=== PATIENT | female | born 1960 | race Caucasian/White ===

== ENCOUNTER → 2023-06-05 13:42 | Outpatient (REF) | payer BC, SELFPAY ==
[2023-06-05 14:19] LABS: % Basophils 0.5 % (0-2); % Eosinophils 1.1 % (0-6); % Immature Granulocytes 0.5 % (0-0.5); % Lymphocytes 17.7 % (20.5-51.1); % Monocytes 6.4 % (1.7-9.3); % Neutrophils 73.8 % (42.2-75.2); Absolute Eosinophils 0.1 10^3/uL (0-0.7); Absolute Lymphocytes 1.4 10^3/uL (1.2-3.4); Absolute Monocytes 0.5 10^3/uL (0.1-0.6); Absolute Neutrophils 5.6 10^3/uL (1.4-6.5); Hemoglobin 13.6 g/dL (12.0-16.0); Mean Corp Hgb Conc. 34.9 g/dL (33.0-37.0); Mean Corpuscular Hgb 31.7 pg (27.0-31.0); Mean Corpuscular Volume 90.9 fL (81.0-99.0); Mean Platelet Volume 10.2 fL (7.4-10.4); Nucleated Red Blood Cells % 0 %; Platelet Count 238 10^3/uL (130-400); Red Blood Cell Count 4.29 10^6/uL (4.20-5.40); Red Cell Dist. Width 12.8 % (11.5-14.5); White Blood Cell Count 7.6 10^3/uL (4.8-10.8)
[2023-06-05 14:50] LABS: ALT (SGPT) 42 U/L (0-35); AST (SGOT) 38 U/L (14-36); Albumin 4.5 g/dl (3.5-5.0); Alkaline Phosphatase 87 U/L (38-126); Blood Urea Nitrogen 37 mg/dl (7-17); Calcium 9.3 mg/dl (8.4-10.2); Carbon Dioxide 27 mmol/L (22-30); Chloride 99 mmol/L (98-107); Glucose 151 mg/dl (70-99); Potassium 4.8 mmol/L (3.5-5.1); Sodium 133 mmol/L (135-145); Total Bilirubin 0.5 mg/dl (0.2-1.3); Total Protein 7.4 g/dl (6.3-8.2); eGFR 51.18
[2023-06-05 14:53] LABS: Erythrocyte Sed Rate 10 mm/hour (0-20)
[2023-06-06 19:13] LABS: Hepatitis B Surface Antigen Negative (Negative)
[2023-06-06 19:31] LABS: Hepatitis B Core Ab, Total Negative (Negative); Hepatitis C Antibody Negative (Negative)
== END ==
LOC: RAD 13:42
PROVIDERS: ATTENDING PHYSICIAN Hospitalist; FAMILY PHYSICIAN Nurse Practitioner Adult Health
DX: M19.90 Unspecified osteoarthritis, unspecified site (principal); M15.0 Primary generalized (osteo)arthritis; R74.8 Abnormal levels of other serum enzymes; Z79.899 Other long term (current) drug therapy
CPT/HCPCS: 36415; 73630; 80053; 85025; 85652; 86140; 86704; 86803; 87340

== ENCOUNTER → 2023-06-06 10:46 | Outpatient (REF) | payer BC, SELFPAY ==
[2023-06-08 16:11] LABS: Quantiferon Mitogen minus NIL 3.64 IU/mL; Quantiferon NIL 0.02 IU/mL; Quantiferon TB Gold Plus Negative (Negative)
== END ==
LOC: REG 10:46
PROVIDERS: ATTENDING PHYSICIAN Hospitalist; FAMILY PHYSICIAN Nurse Practitioner Adult Health
DX: M15.0 Primary generalized (osteo)arthritis (principal); R74.8 Abnormal levels of other serum enzymes; Z79.899 Other long term (current) drug therapy
CPT/HCPCS: 36415; 86480

== ENCOUNTER → 2023-09-30 14:50 | Outpatient (REF) | payer BC, SELFPAY | LOC: WDC 14:50 | PROVIDERS: ATTENDING PHYSICIAN Obstetrics & Gynecology; FAMILY PHYSICIAN Nurse Practitioner Adult Health | DX: Z12.31 Encounter for screening mammogram for malignant neoplasm of breast (principal) | CPT/HCPCS: 77063; 77067 ==

== ENCOUNTER → 2023-10-09 07:50 | Outpatient (REF) | payer BC, SELFPAY ==
[2023-10-09 09:37] LABS: Microalbumin, Random Urine 1.1 mg/dl (0.6-1.7); Microalbumin/creatinine Ratio 9.6 mg/g
[2023-10-09 09:58] LABS: ALT (SGPT) 26 U/L (0-35); AST (SGOT) 30 U/L (14-36); Albumin 4.2 g/dl (3.5-5.0); Alkaline Phosphatase 72 U/L (38-126); Blood Urea Nitrogen 20 mg/dl (7-17); Calcium 9.9 mg/dl (8.4-10.2); Carbon Dioxide 27 mmol/L (22-30); Chloride 101 mmol/L (98-107); Glucose 97 mg/dl (70-99); Sodium 136 mmol/L (135-145); Total Bilirubin 0.6 mg/dl (0.2-1.3); Total Protein 6.9 g/dl (6.3-8.2); eGFR > 60.00
[2023-10-09 11:04] LABS: Glycohemoglobin (HgbA1c) 6.1 % (4.0-5.6)
== END ==
LOC: REG 07:50
PROVIDERS: ATTENDING PHYSICIAN Nurse Practitioner Family
DX: I10 Essential (primary) hypertension (principal); R73.03 Prediabetes
CPT/HCPCS: 36415; 80053; 82043; 82570; 83036

== ENCOUNTER → 2023-10-29 16:00 | Outpatient (REF) | payer BC, SELFPAY ==
[2023-10-29 16:55] LABS: Erythrocyte Sed Rate 26 mm/hour (0-20)
[2023-10-29 17:19] LABS: ALT (SGPT) 36 U/L (0-35); AST (SGOT) 40 U/L (14-36); Albumin 4.3 g/dl (3.5-5.0); Alkaline Phosphatase 73 U/L (38-126); Blood Urea Nitrogen 22 mg/dl (7-17); Carbon Dioxide 29 mmol/L (22-30); Chloride 100 mmol/L (98-107); Glucose 135 mg/dl (70-99); Potassium 4.1 mmol/L (3.5-5.1); Sodium 134 mmol/L (135-145); Total Bilirubin 0.5 mg/dl (0.2-1.3); Total Protein 6.8 g/dl (6.3-8.2); eGFR > 60.00
== END ==
LOC: REG 16:00
PROVIDERS: ATTENDING PHYSICIAN Hospitalist; FAMILY PHYSICIAN Nurse Practitioner Adult Health
DX: M15.0 Primary generalized (osteo)arthritis (principal); M81.0 Age-related osteoporosis without current pathological fracture; R74.8 Abnormal levels of other serum enzymes; Z79.899 Other long term (current) drug therapy
CPT/HCPCS: 36415; 80053; 85652; 86140

== ENCOUNTER → 2023-11-11 08:10 | Outpatient (REF) | payer BC, SELFPAY ==
[2023-11-11 11:23] LABS: % Basophils 0.4 % (0-2); % Eosinophils 1.8 % (0-6); % Immature Granulocytes 0.6 % (0-0.5); % Lymphocytes 15.8 % (20.5-51.1); % Neutrophils 73.4 % (42.2-75.2); Absolute Eosinophils 0.1 10^3/uL (0-0.7); Absolute Immature Granulocytes 0.1 10^3/uL (0-0.05); Absolute Lymphocytes 1.2 10^3/uL (1.2-3.4); Absolute Monocytes 0.6 10^3/uL (0.1-0.6); Absolute Neutrophils 5.7 10^3/uL (1.4-6.5); Hematocrit 39.5 % (37.0-47.0); Hemoglobin 13.5 g/dL (12.0-16.0); Mean Corp Hgb Conc. 34.2 g/dL (33.0-37.0); Mean Corpuscular Volume 90.6 fL (81.0-99.0); Mean Platelet Volume 10.5 fL (7.4-10.4); Nucleated Red Blood Cells % 0 %; Platelet Count 214 10^3/uL (130-400); Red Blood Cell Count 4.36 10^6/uL (4.20-5.40); Red Cell Dist. Width 13.6 % (11.5-14.5); White Blood Cell Count 7.8 10^3/uL (4.8-10.8)
[2023-11-11 12:37] LABS: Urine Albumin Negative (Neg - Trace); Urine Bilirubin Negative (Negative); Urine Character Clear (Clear); Urine Color Yellow; Urine Glucose Negative (Negative); Urine Ketone Negative (Negative); Urine Leukocyte Negative (Negative); Urine Nitrite Negative (Negative); Urine Occult Blood Negative (Negative); Urine Specific Gravity 1.015 (<1.030); Urine Urobilinogen Negative (Neg - 1+)
[2023-11-11 12:59] LABS: ALT (SGPT) 44 U/L (0-35); AST (SGOT) 42 U/L (14-36); Albumin 4.6 g/dl (3.5-5.0); Alkaline Phosphatase 83 U/L (38-126); Blood Urea Nitrogen 21 mg/dl (7-17); Calcium 9.8 mg/dl (8.4-10.2); Carbon Dioxide 28 mmol/L (22-30); Chloride 102 mmol/L (98-107); Glucose 118 mg/dl (70-99); HDL Cholesterol 74 mg/dl; LDL Cholesterol, Calculated 165 mg/dl; Potassium 4.3 mmol/L (3.5-5.1); Sodium 137 mmol/L (135-145); Total Bilirubin 0.6 mg/dl (0.2-1.3); Total Cholesterol 276 mg/dl (50-199); Total Protein 7.1 g/dl (6.3-8.2); Triglyceride 185 mg/dl (10-149); Very Low Density Lipoprotein 37 mg/dl (0-30); Vitamin D, 25-OH*** 37.8 ng/mL (30-80); eGFR > 60.00
[2023-11-11 13:13] LABS: TSH Reflex To Free T4 0.65 uIU/ml (0.47-4.68)
[2023-11-11 14:32] LABS: Microalbumin, Random Urine < 0.6 mg/dl (0.6-1.7)
== END ==
LOC: REG 08:10
PROVIDERS: ATTENDING PHYSICIAN Nurse Practitioner Family
DX: E78.2 Mixed hyperlipidemia (principal); E55.9 Vitamin D deficiency, unspecified; I10 Essential (primary) hypertension
CPT/HCPCS: 36415; 80053; 80061; 81003; 82043; 82306; 82570; 84443; 85025

== ENCOUNTER → 2024-03-12 12:19 | Outpatient (REF) | payer BC, SELFPAY ==
[2024-03-12 13:39] LABS: HDL Cholesterol 71 mg/dl; LDL Cholesterol, Calculated 109 mg/dl; Total Cholesterol 226 mg/dl (50-199); Triglyceride 233 mg/dl (10-149); Very Low Density Lipoprotein 46 mg/dl (0-30)
[2024-03-12 14:23] LABS: Glycohemoglobin (HgbA1c) 6.1 % (4.0-5.6)
== END ==
LOC: REG 12:19
PROVIDERS: ATTENDING PHYSICIAN Nurse Practitioner Family
DX: E78.2 Mixed hyperlipidemia (principal); R73.03 Prediabetes
CPT/HCPCS: 36415; 80061; 83036

== ENCOUNTER → 2024-05-01 12:36 | Outpatient (REF) | payer BC, SELFPAY ==
[2024-05-01 13:48] LABS: ALT (SGPT) 29 U/L (0-35); AST (SGOT) 29 U/L (14-36); Albumin 4.2 g/dl (3.5-5.0); Alkaline Phosphatase 90 U/L (38-126); Blood Urea Nitrogen 20 mg/dl (7-17); Calcium 9.9 mg/dl (8.4-10.2); Carbon Dioxide 28 mmol/L (22-30); Chloride 98 mmol/L (98-107); Glucose 108 mg/dl (70-99); Potassium 4.6 mmol/L (3.5-5.1); Sodium 135 mmol/L (135-145); Total Bilirubin 0.6 mg/dl (0.2-1.3); Total Protein 6.7 g/dl (6.3-8.2); eGFR > 60.00
[2024-05-01 14:02] LABS: Vitamin D, 25-OH*** 35.1 ng/mL (30-80)
== END ==
LOC: REG 12:36
PROVIDERS: ATTENDING PHYSICIAN Hospitalist; FAMILY PHYSICIAN Nurse Practitioner Adult Health
DX: E55.9 Vitamin D deficiency, unspecified (principal); M81.0 Age-related osteoporosis without current pathological fracture
CPT/HCPCS: 36415; 80053; 82306

== ENCOUNTER → 2024-05-12 08:00 | Outpatient (REF) | payer BC, SELFPAY | LOC: RAD 08:00 | PROVIDERS: ATTENDING PHYSICIAN Hospitalist; FAMILY PHYSICIAN Nurse Practitioner Adult Health | DX: M81.0 Age-related osteoporosis without current pathological fracture (principal) | CPT/HCPCS: 77080 ==

== ENCOUNTER → 2024-05-20 15:32 | Outpatient (REF) | payer BC, SELFPAY ==
[2024-05-20 17:40] LABS: ALT (SGPT) 47 U/L (0-35); AST (SGOT) 38 U/L (14-36); Albumin 4.3 g/dl (3.5-5.0); Alkaline Phosphatase 89 U/L (38-126); Blood Urea Nitrogen 22 mg/dl (7-17); Carbon Dioxide 25 mmol/L (22-30); Chloride 102 mmol/L (98-107); Glucose 151 mg/dl (70-99); Potassium 4.5 mmol/L (3.5-5.1); Sodium 137 mmol/L (135-145); Total Bilirubin 0.6 mg/dl (0.2-1.3); Uric Acid 6.7 mg/dl (2.5-6.2); eGFR > 60.00
== END ==
LOC: REG 15:32
PROVIDERS: ATTENDING PHYSICIAN Hospitalist; FAMILY PHYSICIAN Nurse Practitioner Adult Health
DX: M10.9 Gout, unspecified (principal); Z79.899 Other long term (current) drug therapy
CPT/HCPCS: 36415; 73630; 80053; 84550

== ENCOUNTER → 2024-06-23 12:54 | Outpatient (REF) | payer BC, SELFPAY ==
[2024-06-23 14:19] LABS: ALT (SGPT) 64 U/L (0-35); AST (SGOT) 52 U/L (14-36); Albumin 4.3 g/dl (3.5-5.0); Alkaline Phosphatase 77 U/L (38-126); Blood Urea Nitrogen 15 mg/dl (7-17); Carbon Dioxide 31 mmol/L (22-30); Chloride 102 mmol/L (98-107); Glucose 129 mg/dl (70-99); Potassium 4.3 mmol/L (3.5-5.1); Sodium 141 mmol/L (135-145); Total Bilirubin 0.8 mg/dl (0.2-1.3); Total Protein 6.9 g/dl (6.3-8.2); Uric Acid 7.7 mg/dl (2.5-6.2); eGFR > 60.00
== END ==
LOC: REG 12:54
PROVIDERS: ATTENDING PHYSICIAN Hospitalist; FAMILY PHYSICIAN Nurse Practitioner Adult Health
DX: M10.9 Gout, unspecified (principal); Z79.899 Other long term (current) drug therapy
CPT/HCPCS: 36415; 80053; 84550; 86140

== ENCOUNTER → 2024-07-29 13:12 | Outpatient (REF) | payer BC, SELFPAY ==
[2024-07-29 14:10] LABS: % Basophils 0.5 % (0-2); % Eosinophils 0.8 % (0-6); % Immature Granulocytes 0.6 % (0-0.5); % Lymphocytes 16.6 % (20.5-51.1); % Monocytes 8.8 % (1.7-9.3); % Neutrophils 72.7 % (42.2-75.2); Absolute Eosinophils 0.1 10^3/uL (0-0.7); Absolute Immature Granulocytes 0.1 10^3/uL (0-0.05); Absolute Lymphocytes 1.3 10^3/uL (1.2-3.4); Absolute Monocytes 0.7 10^3/uL (0.1-0.6); Absolute Neutrophils 5.7 10^3/uL (1.4-6.5); Hematocrit 41.1 % (37.0-47.0); Hemoglobin 14.2 g/dL (12.0-16.0); Mean Corp Hgb Conc. 34.5 g/dL (33.0-37.0); Mean Corpuscular Hgb 32.2 pg (27.0-31.0); Mean Corpuscular Volume 93.2 fL (81.0-99.0); Mean Platelet Volume 10.6 fL (7.4-10.4); Nucleated Red Blood Cells % 0 %; Platelet Count 225 10^3/uL (130-400); Red Blood Cell Count 4.41 10^6/uL (4.20-5.40); Red Cell Dist. Width 12.9 % (11.5-14.5); White Blood Cell Count 7.8 10^3/uL (4.8-10.8)
[2024-07-29 14:27] LABS: ALT (SGPT) 55 U/L (0-35); AST (SGOT) 41 U/L (14-36); Albumin 4.8 g/dl (3.5-5.0); Alkaline Phosphatase 65 U/L (38-126); Blood Urea Nitrogen 23 mg/dl (7-17); Calcium 10.1 mg/dl (8.4-10.2); Carbon Dioxide 31 mmol/L (22-30); Chloride 98 mmol/L (98-107); Glucose 122 mg/dl (70-99); Potassium 4.3 mmol/L (3.5-5.1); Sodium 139 mmol/L (135-145); Total Bilirubin 0.8 mg/dl (0.2-1.3); Total Protein 7.5 g/dl (6.3-8.2); eGFR > 60.00
[2024-07-29 15:30] LABS: Uric Acid 6.3 mg/dl (2.5-6.2)
== END ==
LOC: REG 13:12
PROVIDERS: ATTENDING PHYSICIAN Hospitalist; FAMILY PHYSICIAN Nurse Practitioner Adult Health
DX: M10.9 Gout, unspecified (principal); M81.0 Age-related osteoporosis without current pathological fracture
CPT/HCPCS: 36415; 80053; 84550; 85025

== ENCOUNTER 2024-08-13 15:29 | Outpatient (RCR) | payer BC, SELFPAY | END 2024-08-13 23:59 | disposition home or self-care (01) | LOC: RPT 15:29 | PROVIDERS: ATTENDING PHYSICIAN Family Medicine; FAMILY PHYSICIAN Nurse Practitioner Adult Health | DX: H81.12 Benign paroxysmal vertigo, left ear (principal); Z73.6 Limitation of activities due to disability | CPT/HCPCS: 97112; 97162 ==

== ENCOUNTER → 2024-08-31 16:34 | Outpatient (REF) | payer BC, SELFPAY ==
[2024-08-31 17:29] LABS: % Basophils 0.7 % (0-2); % Eosinophils 2.5 % (0-6); % Immature Granulocytes 0.5 % (0-0.5); % Lymphocytes 19.6 % (20.5-51.1); % Monocytes 9.3 % (1.7-9.3); % Neutrophils 67.4 % (42.2-75.2); Absolute Basophils 0.1 10^3/uL (0-0.2); Absolute Eosinophils 0.2 10^3/uL (0-0.7); Absolute Lymphocytes 1.5 10^3/uL (1.2-3.4); Absolute Monocytes 0.7 10^3/uL (0.1-0.6); Absolute Neutrophils 5.1 10^3/uL (1.4-6.5); Hematocrit 39.1 % (37.0-47.0); Hemoglobin 13.1 g/dL (12.0-16.0); Mean Corp Hgb Conc. 33.5 g/dL (33.0-37.0); Mean Corpuscular Volume 95.6 fL (81.0-99.0); Mean Platelet Volume 10.8 fL (7.4-10.4); Nucleated Red Blood Cells % 0 %; Platelet Count 191 10^3/uL (130-400); Red Blood Cell Count 4.09 10^6/uL (4.20-5.40); Red Cell Dist. Width 12.6 % (11.5-14.5); White Blood Cell Count 7.6 10^3/uL (4.8-10.8)
[2024-08-31 17:45] LABS: ALT (SGPT) 50 U/L (0-35); AST (SGOT) 31 U/L (14-36); Albumin 4.2 g/dl (3.5-5.0); Alkaline Phosphatase 57 U/L (38-126); Blood Urea Nitrogen 20 mg/dl (7-17); Calcium 9.8 mg/dl (8.4-10.2); Carbon Dioxide 27 mmol/L (22-30); Chloride 105 mmol/L (98-107); Glucose 128 mg/dl (70-99); Potassium 4.4 mmol/L (3.5-5.1); Sodium 138 mmol/L (135-145); Total Bilirubin 0.5 mg/dl (0.2-1.3); Total Protein 6.8 g/dl (6.3-8.2); Uric Acid 4.1 mg/dl (2.5-6.2); eGFR > 60.00
== END ==
LOC: REG 16:34
PROVIDERS: ATTENDING PHYSICIAN Hospitalist; FAMILY PHYSICIAN Nurse Practitioner Adult Health
DX: M10.9 Gout, unspecified (principal)
CPT/HCPCS: 36415; 80053; 84550; 85025

== ENCOUNTER 2024-10-29 15:51 | Outpatient (RCR) | payer BC, SELFPAY | END 2024-10-29 23:59 | disposition home or self-care (01) | LOC: RPT 15:51 | PROVIDERS: ATTENDING PHYSICIAN Student in an Organized Health Care Education/Training Program; FAMILY PHYSICIAN Nurse Practitioner Adult Health | DX: M76.62 Achilles tendinitis, left leg (principal); Z73.6 Limitation of activities due to disability | CPT/HCPCS: 97110; 97140; 97162 ==

== ENCOUNTER 2024-11-17 16:20 | Outpatient (RCR) | payer BC, SELFPAY | END 2024-11-17 23:59 | disposition home or self-care (01) | LOC: RPT 16:20 | PROVIDERS: ATTENDING PHYSICIAN Student in an Organized Health Care Education/Training Program; FAMILY PHYSICIAN Nurse Practitioner Adult Health | DX: M76.62 Achilles tendinitis, left leg (principal); Z73.6 Limitation of activities due to disability; R26.89 Other abnormalities of gait and mobility | CPT/HCPCS: 97110; 97140; 97760 ==

== ENCOUNTER → 2024-12-01 07:27 | Outpatient (REF) | payer BC, SELFPAY | LOC: HWRAD 07:27 | PROVIDERS: ATTENDING PHYSICIAN Family Medicine | DX: R22.42 Localized swelling, mass and lump, left lower limb (principal) | CPT/HCPCS: 73590; 76882 ==

== ENCOUNTER 2024-12-01 16:25 | Outpatient (RCR) | payer BC, SELFPAY | END 2024-12-01 23:59 | disposition home or self-care (01) | LOC: RPT 16:25 | PROVIDERS: ATTENDING PHYSICIAN Student in an Organized Health Care Education/Training Program; FAMILY PHYSICIAN Nurse Practitioner Adult Health | DX: M76.62 Achilles tendinitis, left leg (principal); Z73.6 Limitation of activities due to disability; R26.89 Other abnormalities of gait and mobility; M62.81 Muscle weakness (generalized) | CPT/HCPCS: 97110; 97140 ==

== ENCOUNTER → 2024-12-14 14:56 | Outpatient (REF) | payer BC, SELFPAY | LOC: WDC 14:56 | PROVIDERS: ATTENDING PHYSICIAN Student in an Organized Health Care Education/Training Program; FAMILY PHYSICIAN Nurse Practitioner Adult Health | DX: Z12.31 Encounter for screening mammogram for malignant neoplasm of breast (principal) | CPT/HCPCS: 77063; 77067 ==

== ENCOUNTER 2024-12-18 10:07 | Emergency (ER) | payer BC, SELFPAY ==
[2024-12-18 10:10] VITALS: BP 183/100
--- NOTE | 2024-12-18 10:17 | ED.GENMED ---
History of Present Illness
General
Chief Complaint: Blood Pressure Problem
Time Seen by Provider: 12/18/24 10:17
History of Present Illness
History of Present Illness:
FOCUSED PAST MEDICAL HISTORY
- High blood pressure, hyperlipidemia
REVIEW OF OLD RECORDS
- Lab work from this past August is relatively unremarkable. I reviewed the MRI report from 01/28/2023 and at that time the patient had headaches and dizziness and the MRI at that time was negative for acute abnormality. Some mild chronic
microangiopathic ischemia was suggested in the white matter bilaterally.
Note:
CHIEF COMPLAINT(S)
Vertigo and elevated blood pressure.
HISTORY OF PRESENT ILLNESS
The patient is a 64-year-old female who presented with episodes of vertigo and elevated blood pressure. She notes having a history of vertigo, for which she takes meclizine, but describes this episode as feeling different. She was at work when she
experienced a more pronounced sensation of dizziness and felt her heart 'fluttering' more than usual. Despite trying to continue working, she felt unsteady and questioned if she was having a stroke when asking colleagues if she seemed alright. Her
blood pressure was recorded at 220/100 mmHg at that time. She describes feeling off-balance and unsteady, expressing a need to grab onto something. A CAT scan of the brain and repeat blood work have been ordered for further evaluation. The patient
has had a previous incident suggestive of a transient ischemic attack (TIA) about three to four years ago, though it was not formally evaluated at a hospital. Her EKG today is reported as fine, without evidence of acute cardiac issues. The patient
has no clear history of a stroke or heart attack but notes that stroke runs in her family.
CHRONIC MEDICAL CONDITIONS SIGNIFICANTLY AFFECTING CARE
Hypertension. There is a history suggestive of a transient ischemic attack approximately three to four years ago, though it was not formally diagnosed.
SOCIAL HISTORY
The patient reports social alcohol use but not on a daily basis.
MEDICATIONS
The patient is currently taking meclizine for vertigo and lisinopril 40 mg, along with aspirin for blood pressure management and stroke prevention.
REVIEW OF SYSTEMS
- Neurological: Reports vertigo, feeling off-balance, and unsteady.
- Cardiovascular: No chest pain, but reports heart fluttering sensations.
- Other Systems: No additional symptoms reported.
PHYSICAL EXAM
General: Alert, no acute distress.
Skin: Warm, dry.
Head: Normocephalic, atraumatic.
Neck: Supple, trachea midline.
Eye, Ears, Nose, Mouth, and Throat: Oral mucosa moist.
Cardiovascular: Normal peripheral perfusion, no edema. Regular rhythm
Respiratory: Respirations are non-labored.
Gastrointestinal: Abdomen nondistended.
Back: Normal range of motion, normal alignment.
Musculoskeletal: Normal range of motion, normal strength.
Neurological: Alert and oriented to person, place, time, and situation. A slight wobbliness/instability noted with gait testing but finger-nose testing is normal, good strength in all extremities
Psychiatric: Cooperative, appropriate mood & affect.
PLAN
1. Order a CAT scan of the brain to rule out any acute intracranial issues, considering the patients described vertigo and history of possible transient ischemic attack.
2. Obtain repeat blood work to assess for any underlying metabolic or hematological concerns contributing to her symptoms.
3. Monitor and recheck blood pressure readings.
4. Consideration of adjusting blood pressure management if consistently elevated readings persist, with caution against rapidly lowering the blood pressure to avoid any potential precipitating events, such as a stroke.
DIFFERENTIAL DIAGNOSIS
The Differential Diagnosis includes, in no particular order and is not limited to:
1. Hypertensive crisis.
2. Benign paroxysmal positional vertigo.
3. Transient ischemic attack.
4. Inner ear dysfunction (e.g., labyrinthitis, vestibular neuritis).
5. Cardiovascular dysrhythmia.
6. Vertebrobasilar insufficiency.
7. Anxiety or panic attack.
8. Thyroid disorder (e.g., hyperthyroidism).
9. Anemia.
10. Medication side effect.
RADIOLOGY
- CT CTA head and neck showed no acute abnormality
EKG
- Sinus, incomplete right bundle branch block, ventricular rate 90
LABS
- CBC and chemistries unremarkable, hemolyzed specimen therefore potassium not obtained but normal renal function
UPDATE
-SUMMARY OF ENCOUNTER
The patient is a 64-year-old female who presented to the emergency department with episodes of vertigo and significantly elevated blood pressure. She experienced a sensation of dizziness and heart fluttering while at work, prompting concerns about a
possible stroke. Her blood pressure was recorded at 220/100 mmHg. The patient has a history of hypertension managed with lisinopril, but due to recent episodes, her blood pressure regime is being re-evaluated. While CAT scans and blood work were
pending for evaluation, her EKG showed no acute cardiac issues. The current visit was primarily geared towards managing her elevated blood pressure and ruling out immediate neurological concerns. An additional medication evaluation is suggested due
to her current antihypertensive regimen reaching maximum doses, and the need to avoid others due to side effects or contraindications.
DISPOSITION
Discharge.
ASSESSMENT
1. Elevated blood pressure, needing re-evaluation of management.
2. Vertigo, differential includes benign paroxysmal positional vertigo versus cerebrovascular events.
PLAN
1. Discharge the patient with instructions to monitor her blood pressure at home using available resources. 2. Recommend follow-up with her primary care physician for assessment of blood pressure management, possibly adjusting current medications.
3. Consider avoiding medications like hydrochlorothiazide and amlodipine due to past side effects and contraindications such as gout. 4. Schedule an appointment for further evaluation and ensure consistent monitoring for persistently high blood
pressure readings.
PATIENT EDUCATION AND COUNSELING
Advised the patient about the importance of managing blood pressure and monitoring it at home. Discussed the potential need for medication adjustments and the avoidance of certain drugs due to side effects. Emphasized the importance of follow-up
with her primary care physician to ensure appropriate long-term management.
FOLLOW-UP INSTRUCTIONS
The patient is advised to contact her primary care provider to schedule a follow-up appointment immediately to address her blood pressure management plan and make any necessary adjustments.
MEDICATION RECONCILIATION
The patient is on lisinopril and atenolol at maximum tolerated doses; a discussion about additional medications like hydralazine or clonidine was suggested.
MEDICAL DECISION MAKING
-Complexity of Data Reviewed: Chronic conditions affecting care: Hypertension; History of possible transient ischemic attack (TIA). Differential Diagnosis includes hypertensive crisis, benign paroxysmal positional vertigo, transient ischemic attack,
inner ear dysfunction, cardiovascular dysrhythmia, vertebrobasilar insufficiency, anxiety or panic attack, thyroid disorder, anemia, and medication side effect.
-Data:
Category 1
Reviewed EKG which showed no acute cardiac issues. Pending CAT scan and blood work.
Category 2
Categories information obtained from the patients direct account of symptom history.
-Risk: Prescription medication management was discussed, considering need for additional hypertensive medications. Debated need for additional diagnostic testing for vertigo symptoms but determined outpatient follow-up was suitable. Consideration of
Admission/Observation: Escalation of care including admission/observation was considered given the complexity and risk of the patients presenting complaint, exam findings, and/or their underlying comorbidities. However, ultimately I feel the patient
is safe for outpatient management with close follow-up. Reasoning: Work-up reassuring, does not reveal any acute life/organ-threatening processes, patients symptoms well controlled upon reevaluation, re-examination is reassuring, vitals are stable,
patient agreeable with discharge, reliable for follow-up.
DIAGNOSIS
1. Dizziness
2. High blood pressure
Phy Exam
Physical Exam
Physical Exam:
Dizziness
Course
Orders/Labs/Results
Orders:
Orders
12/18/24 10:13
Electrocardiogram (*1) Urgent
Reason for Study: Vertigo / Dizzy
EKG- Treatment ONCE
12/18/24 10:25
CT Head & Neck Angio W/wo IV Urgent
Comment:
Reason For Exam: acute ataxia
12/18/24 10:33
Alcohol Urgent
Basic Metabolic Panel Urgent
Complete Blood Count/With Diff Urgent
PT Consult [Pt Eval And Treat] Urgent
Activity Level: As Tolerated
Abnormal Lab Results
12/18/24
10:33
RBC 4.09 L 10^6/uL
(4.20-5.40)
MCH 32.8 H pg
(27.0-31.0)
MPV 10.8 H fL
(7.4-10.4)
Abs Immat Gran (auto) 0.1 H 10^3/uL
(0-0.05)
Immature Gran % 0.8 H %
(0-0.5)
BUN 18 H mg/dl
(7-17)
Glucose 166 H mg/dl
(70-99)
12/18/24 10:33
12/18/24 10:33
Vital Signs
Blood pressure: 156/98
Initial and Last Documented VS:
Initial Vital Signs
Temp Pulse Resp BP Pulse Ox
36.9 C 102 18 183/100 98
12/18/24 10:10 12/18/24 10:10 12/18/24 10:10 12/18/24 10:10 12/18/24 10:10
Last Documented Vital Signs
Temp Pulse Resp BP Pulse Ox
36.9 C 94 16 156/98 94
12/18/24 10:10 12/18/24 13:00 12/18/24 13:00 12/18/24 12:02 12/18/24 13:00
*Pulse Oximetry
SaO2: 98
Oxygen Mode of Delivery: Room air
Patient hypoxic: no
*Critical Care Note
Total Time (30-74mins, 75-104mins- exclusive of procedures): Not Applicable
ED Attending Note
-
Portions of this chart may have been created with voice recognition software.� Occasional wrong word or��sound alike� substitutions may have occurred due to the inherent limitations of voice recognition software.
Discharge Plan
Departure
Patient Disposition: Home (Routine Discharge)
Date of Disposition: 12/18/24
Time of Disposition: 13:41
Patient with high blood pressure during this ER visit?: Yes
Discharge Problem:
Dizziness
Instructions: Dizziness, BLOOD PRESSURE
Referrals:
Waldemar Jordan, DO [Family Provider]
Activity Restrictions/Additional Instructions:
The cause of your symptoms is unclear. We did have physical therapy work with you. Basic blood work is unremarkable. We did a CAT scan of your head as well as a CAT scan of your head and neck with contrast that showed no blockages in your blood
vessels. No clear sign for stroke. You could intermittently get blood pressure over the next several days and I recommend that you follow-up your primary care doctor.
Interventions
Interventions:
*Risk Screen - Suicide Last Done: 12/18/24 10:10
*General Assessment Last Done: 12/18/24 10:10
*Neglect/Abuse Screening Last Done: 12/18/24 10:10
*ED- Fall Risk Assessment Last Done: 12/18/24 10:48
*ED COVID-19 Vaccine History Last Done: 12/18/24 10:48
ED- Cardiac Assessment Last Done: 12/18/24 13:12
ED- Neurological Assessment Last Done: 12/18/24 13:12
ED- Pulmonary Assessment Last Done: 12/18/24 13:12
Discharge Date and Time
Print Language: MONGOLIAN
[2024-12-18 10:31] VITALS: BP 154/96
[2024-12-18 10:32] VITALS: BMI 29.1
[2024-12-18 11:00] VITALS: BP 135/60
[2024-12-18 11:09] LABS: Hematocrit 38.5 % (37.0-47.0); Hemoglobin 13.4 g/dL (12.0-16.0); Mean Corp Hgb Conc. 34.8 g/dL (33.0-37.0); Mean Corpuscular Volume 94.1 fL (81.0-99.0); Nucleated Red Blood Cells % 0 %; Platelet Count 196 10^3/uL (130-400); Red Cell Dist. Width 13.0 % (11.5-14.5)
[2024-12-18 11:22] LABS: Blood Urea Nitrogen 18 mg/dl (7-17); Calcium 9.7 mg/dl (8.4-10.2); Carbon Dioxide 24 mmol/L (22-30); Chloride 104 mmol/L (98-107); Estimated Creatinine Clearance 89 ml/min; Glucose 166 mg/dl (70-99); Sodium 137 mmol/L (135-145); eGFR > 60.00
[2024-12-18 12:00] VITALS: BP 136/63
[2024-12-18 14:25] VITALS: BP 162/70
== END 2024-12-18 14:28 | disposition home or self-care (01) ==
LOC: EMR 10:07
PROVIDERS: EMERGENCY PHYSICIAN Emergency Medicine; FAMILY PHYSICIAN Family Medicine
DX: R42 Dizziness and giddiness (principal); I10 Essential (primary) hypertension; E78.5 Hyperlipidemia, unspecified; Z79.82 Long term (current) use of aspirin; Z82.3 Family history of stroke
CPT/HCPCS: 99284; 70496; 70498; 80048; 82077; 85025; 93005; Q9967

== ENCOUNTER → 2024-12-23 07:51 | Outpatient (REF) | payer BC, SELFPAY ==
[2024-12-23 09:11] LABS: Urine Character Slightly Cloudy (Clear)
[2024-12-23 09:23] LABS: Hematocrit 38.3 % (37.0-47.0); Hemoglobin 13.1 g/dL (12.0-16.0); Mean Corp Hgb Conc. 34.2 g/dL (33.0-37.0); Mean Corpuscular Volume 94.6 fL (81.0-99.0); Nucleated Red Blood Cells % 0 %; Platelet Count 197 10^3/uL (130-400); Red Cell Dist. Width 13.2 % (11.5-14.5)
[2024-12-23 10:03] LABS: ALT (SGPT) 47 U/L (0-35); AST (SGOT) 41 U/L (14-36); Albumin 4.3 g/dl (3.5-5.0); Alkaline Phosphatase 68 U/L (38-126); Blood Urea Nitrogen 13 mg/dl (7-17); Calcium 9.3 mg/dl (8.4-10.2); Carbon Dioxide 28 mmol/L (22-30); Chloride 103 mmol/L (98-107); Glucose 97 mg/dl (70-99); HDL Cholesterol 55 mg/dl; LDL Cholesterol, Calculated 82 mg/dl; Potassium 3.9 mmol/L (3.5-5.1); Sodium 139 mmol/L (135-145); Total Protein 6.9 g/dl (6.3-8.2); Uric Acid 4.3 mg/dl (2.5-6.2); Very Low Density Lipoprotein 47 mg/dl (0-30); eGFR > 60.00
[2024-12-23 11:33] LABS: Glycohemoglobin (HgbA1c) 6.2 % (4.0-5.6)
== END ==
LOC: REG 07:51
PROVIDERS: ATTENDING PHYSICIAN Family Medicine
DX: Z00.00 Encounter for general adult medical examination without abnormal findings (principal); E78.2 Mixed hyperlipidemia; I10 Essential (primary) hypertension; R73.03 Prediabetes; E55.9 Vitamin D deficiency, unspecified; M10.9 Gout, unspecified
CPT/HCPCS: 36415; 80053; 80061; 81003; 83036; 84443; 84550; 85025

== ENCOUNTER → 2024-12-29 12:11 | Outpatient (REF) | payer BC, SELFPAY | LOC: MRI 3T 12:11 | PROVIDERS: ATTENDING PHYSICIAN Student in an Organized Health Care Education/Training Program; FAMILY PHYSICIAN Family Medicine | DX: M25.572 Pain in left ankle and joints of left foot (principal) | CPT/HCPCS: 73721 ==

== ENCOUNTER 2025-01-20 06:20 | Day surgery (SDC) | payer BC, SELFPAY ==
[2025-01-18 09:27] LABS: ALT (SGPT) 62 U/L (0-35); AST (SGOT) 48 U/L (14-36); Albumin 4.6 g/dl (3.5-5.0); Alkaline Phosphatase 71 U/L (38-126); Blood Urea Nitrogen 18 mg/dl (7-17); Calcium 9.7 mg/dl (8.4-10.2); Carbon Dioxide 29 mmol/L (22-30); Chloride 103 mmol/L (98-107); Glucose 118 mg/dl (70-99); Potassium 4.3 mmol/L (3.5-5.1); Sodium 141 mmol/L (135-145); Total Protein 7.3 g/dl (6.3-8.2); eGFR > 60.00
[2025-01-18 11:19] VITALS: BMI 27.5
[2025-01-20] VITALS (7 sets, daily range): BP systolic 130–146; BP diastolic 68–91; BMI 27.5
[2025-01-20] MEDS: CELEBREX 200 MG PO (14:12)
[2025-01-20] MEDS: TYLENOL 1000 MG PO (14:12)
[2025-01-20] MEDS: NORMOSOL-R/PLASMALYTE-A 1000 IV (14:13)
--- NOTE | 2025-01-23 00:10 | OR.RPT ---
Operative Report
Operative Report
OPERATIVE REPORT
Patient Name: Brea Trujillo
MRN:�[id number]
Date of Surgery:�01/20/2025
Surgeon:�Philippe Franco DPM
Helium Arc Welder:�Philippe Maxwell DPM
Preoperative Diagnosis:
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
Postoperative Diagnosis:
Same as preoperative
Procedure Performed:
Flexor hallucis longus (FHL) tendon transfer to calcaneus, left CPT 87820
Secondary repair of chronic Achilles tendon rupture, left CPT 55679
Anesthesia:�General with 20ccs of 0.5% bupivacaine plain
Hemostasis:�Thigh tourniquet which remained inflated at 325mmHg for the entirety of the procedure
Estimated Blood Loss:�<50 mL
Complications:�None
Materials:�#0 Fiberloop, #2 Fiberwire, 1x Arthrex Tenodesis screw
Specimens:�None
Indications for Procedure:
The patient is a 64-year-old female with a chronic left Achilles tendon rupture that failed to heal following several months of nonoperative management including immobilization, physical therapy, and bracing. MRI demonstrated a complete
full-thickness rupture�of the Achilles tendon with an approximate 4.5 cm tendon gap�and retraction of the proximal stump. Given the chronicity of the rupture, tendon degeneration, and persistent weakness with plantarflexion, the decision was made to
proceed with flexor hallucis longus (FHL) tendon transfer and direct Achilles repair�to restore function and strength.
Procedure in Detail:
The patient was brought to the operating room and placed in the prone position�on the operating table. After administration of anesthesia, the left lower extremity�was prepped and draped in the usual sterile fashion. A pneumatic thigh tourniquet�was
applied but inflated after exsanguination.�
A posteromedial incision�was made overlying the Achilles tendon, extending from approximately 5 cm proximal to the rupture site down to the posterior aspect of the calcaneus. Blunt dissection was carried sharply through subcutaneous tissue, taking
care to protect the sural nerve and all other neurovascular structures. The paratenon was incised and reflected.
The Achilles tendon rupture�was identified. There was a 4.5 cm gap between the proximal and distal stumps filled with scar and fibrotic tissue, which was sharply debrided back to healthy tendon ends. The proximal stump was noted to be retracted and
of diminished quality.
Attention was then directed distally. The flexor hallucis longus (FHL) tendon�was identified along the deep posterior compartment beneath the Achilles tendon. The fascia over the FHL muscle belly was incised, and the tendon was traced distally,�
then transected under tension to preserve adequate length for transfer.
The harvested FHL tendon was then mobilized and brought proximally through a small window created in the deep fascia to the posterior calcaneal surface. A guidewire�was placed into the posterior calcaneus at the desired insertion site, and a tendon
tunnel�was drilled and sized appropriately. The FHL tendon was prepared with a #0 FiberLoop�suture and inserted into the calcaneus using an Arthrex bio-tenodesis screw, achieving solid fixation. The tendon had excellent tension and restored
physiologic line of pull.
Attention was then returned to the Achilles tendon repair. Using #2 FiberWire, the proximal and distal tendon stumps were sutured using a Krackow locking stitch�technique. The two ends were approximated under appropriate tension with the ankle held
in slight plantarflexion. A strong and anatomic repair was achieved without gapping.
The surgical site was copiously irrigated�with sterile saline solution. The paratenon was reapproximated with absorbable 2-0 vicryl suture, followed by layered closure of the subcutaneous tissue with 3-0 vicryl and skin using 3-0 prolene sutures for
the skin. A sterile compressive dressing was applied, and the extremity was placed into a posterior splint with the ankle in plantarflexion.
The patient tolerated the procedure well without complication and was transported to the recovery unit in stable condition.
Postoperative Plan:
[id number] to the left lower extremity.
Posterior splint for 2 weeks, then transition to boot in plantarflexion per protocol.
Elevation and pain control as needed.
Follow-up in 10�14 days for wound evaluation
== END 2025-01-20 19:40 | disposition home or self-care (01) ==
LOC: SDS 06:20
PROVIDERS: ATTENDING PHYSICIAN Student in an Organized Health Care Education/Training Program; FAMILY PHYSICIAN Family Medicine
DX: S86.012A Strain of left Achilles tendon, initial encounter (principal); M76.62 Achilles tendinitis, left leg; X58.XXXA Exposure to other specified factors, initial encounter
CPT/HCPCS: 27650; 27691; 80053; 93005; C1713

== ENCOUNTER → 2025-03-05 15:38 | Outpatient (REF) | payer BC, SELFPAY ==
[2025-03-05 16:25] LABS: Hematocrit 40.8 % (37.0-47.0); Hemoglobin 14.1 g/dL (12.0-16.0); Mean Corp Hgb Conc. 34.6 g/dL (33.0-37.0); Mean Corpuscular Volume 94.9 fL (81.0-99.0); Nucleated Red Blood Cells % 0 %; Platelet Count 220 10^3/uL (130-400); Red Cell Dist. Width 12.7 % (11.5-14.5)
[2025-03-05 16:26] LABS: ALT (SGPT) 42 U/L (0-35); AST (SGOT) 34 U/L (14-36); Albumin 4.5 g/dl (3.5-5.0); Alkaline Phosphatase 77 U/L (38-126); Blood Urea Nitrogen 22 mg/dl (7-17); Calcium 10.1 mg/dl (8.4-10.2); Carbon Dioxide 27 mmol/L (22-30); Chloride 103 mmol/L (98-107); Glucose 150 mg/dl (70-99); Potassium 4.3 mmol/L (3.5-5.1); Sodium 136 mmol/L (135-145); Total Protein 7.5 g/dl (6.3-8.2); Uric Acid 3.9 mg/dl (2.5-6.2); eGFR > 60.00
[2025-03-05 16:28] LABS: C-Reactive Protein 31.20 mg/L (0.0-10.00)
== END ==
LOC: REG 15:38
PROVIDERS: ATTENDING PHYSICIAN Hospitalist
DX: M10.9 Gout, unspecified (principal); M81.0 Age-related osteoporosis without current pathological fracture; Z79.899 Other long term (current) drug therapy
CPT/HCPCS: 36415; 80053; 84550; 85025; 86140

== ENCOUNTER 2025-03-29 09:43 | Outpatient (RCR) | payer BC, SELFPAY | END 2025-03-29 23:59 | disposition home or self-care (01) | LOC: RPT 09:43 | PROVIDERS: ATTENDING PHYSICIAN Student in an Organized Health Care Education/Training Program; FAMILY PHYSICIAN Family Medicine | DX: Z47.89 Encounter for other orthopedic aftercare (principal); S86.012D Strain of left Achilles tendon, subsequent encounter; Z73.6 Limitation of activities due to disability; R26.89 Other abnormalities of gait and mobility; M62.81 Muscle weakness (generalized) | CPT/HCPCS: 97110; 97116; 97140; 97162 ==